=== PATIENT | male | born 1990 | race Caucasian/White ===

== ENCOUNTER 2025-05-21 01:10 | Emergency (ER) | payer OTHER ==
[~2025-05-21] VITALS: Ht 175.3 cm; Wt 89.0 kg
[2025-05-21 03:16] VITALS: BP 123/82
== END 2025-05-21 03:19 | disposition home or self-care (01) ==
LOC: ED 01:10
DX: S01.511A Laceration without foreign body of lip, initial encounter (principal); Y04.0XXA Assault by unarmed brawl or fight, initial encounter
CPT/HCPCS: 12052; 99283